=== PATIENT | female | born 1975 | race Caucasian/White ===

== ENCOUNTER 2019-01-21 23:52 | Emergency (ER) | payer BC, OTHER ==
--- NOTE | 2019-01-22 00:03 | EDM.PDOC ---
ED HPI GENERAL MEDICAL PROBLEM - General Chief Complaint: General Stated Complaint: PT SPOKE TO NURSE Time Seen by Provider: 01/22/19 00:00 - History of Present Illness INITIAL COMMENTS - FREE TEXT/NARRATIVE: HISTORY AND PHYSICAL: History of present illness: Patient 43-year-old female with history of hypertension who presents with a concern of cough she is scheduled appointment with her doctor tomorrow because a concern of possible pneumonia is been no fever chills nausea vomiting she has a history of anxiety Review of systems: As per history of present illness and below otherwise all systems reviewed and negative. Past medical history: As per history of present illness and as reviewed below otherwise noncontributory. Surgical history: As per history of present illness and as reviewed below otherwise noncontributory. Social history: No reported history of drug or alcohol abuse. Family history: As per history of present illness and as reviewed below otherwise noncontributory. Physical exam: HEENT: Atraumatic, normocephalic, pupils reactive, negative for conjunctival pallor or scleral icterus, mucous membranes moist, throat clear, neck supple, nontender, trachea midline. Lungs: Clear to auscultation, breath sounds equal bilaterally, chest nontender. Heart: S1S2, regular, negative for clicks, rubs, or JVD. Abdomen: Soft, nondistended, nontender. Negative for masses or hepatosplenomegaly. Negative for costovertebral tenderness. Pelvis: Stable nontender. Genitourinary: Deferred. Rectal: Deferred. Extremities: Atraumatic, negative for cords or calf pain. Neurovascular unremarkable. Neuro: Awake, alert, oriented. Cranial nerves II through XII unremarkable. Cerebellum unremarkable. Motor and sensory unremarkable throughout. Exam nonfocal. Diagnostics: Chest x-ray EKG Therapeutics: None Impression: #1 medical screening exam #2 history of hypertension Definitive disposition and diagnosis as appropriate pending reevaluation and review of above. - Related Data Allergies Allergy/AdvReac Type Severity Reaction Status Date / Time No Known Allergies Allergy Verified 01/21/19 23:56 Home Meds: Home Meds Ascorbic Acid [Vitamin C] 200 mg PO DAILY 01/21/19 [History] Calcium Carb/Magnesium Hydrox [Rolaids Chewable Tablet] 1 tab PO ASDIRECTED [History] Ibuprofen [Advil] 200 mg PO ASDIRECTED PRN 01/21/19 [History] Metoprolol Succinate [Kapspargo Sprinkle] 50 mg PO DAILY 01/21/19 [History] Multivitamin [Multivitamins] 1 tab PO DAILY 01/21/19 [History] [place]-3/DHA/Epa/Fish Oil [[place] 3 500 Softgel] 1,040 mg PO DAILY 01/21/19 [ History] Omeprazole Magnesium [Prilosec Otc] 20 mg PO ASDIRECTED 01/21/19 [History] ED ROS GENERAL - Review of Systems Review Of Systems: ROS reveals no pertinent complaints other than HPI. ED EXAM, GENERAL - Physical Exam Exam: See Below (The dictation) Course - Vital Signs Last Recorded V/S: Last Vital Signs Temp 36.4 C 01/21/19 23:54 Pulse 110 H 01/21/19 23:54 Resp 20 01/21/19 23:54 BP 184/91 H 01/21/19 23:54 Pulse Ox 96 01/21/19 23:54 Departure - Departure Time of Disposition: 00:02 Disposition: Home, Self-Care 01 Condition: Good Clinical Impression: Encounter for medical screening examination, Hypertension - Discharge Information Referrals: Rafael Friend MD [Primary Care Provider] - Additional Instructions: The following information is given to patients seen in the emergency department who are being discharged to home. This information is to outline your options for follow-up care. We provide all patients seen in our emergency department with a follow-up referral. The need for follow-up, as well as the timing and circumstances, are variable depending upon the specifics of your emergency department visit. If you don't have a primary care physician on staff, we will provide you with a referral. We always advise you to contact your personal physician following an emergency department visit to inform them of the circumstance of the visit and for follow-up with them and/or the need for any referrals to a consulting specialist. The emergency department will also refer you to a specialist when appropriate. This referral assures that you have the opportunity for followup care with a specialist. All of these measure are taken in an effort to provide you with optimal care, which includes your followup. Under all circumstances we always encourage you to contact your private physician who remains a resource for coordinating your care. When calling for followup care, please make the office aware that this follow-up is from your recent emergency room visit. If for any reason you are refused follow-up, please contact the [facility] emergency department at and asked to speak to the emergency department charge nurse. Chief schedule appointment in a.m. continue current medications return as needed as discussed
--- NOTE | 2019-01-22 00:36 | CR ---
INDICATION: Tingling and pain. TECHNIQUE: Chest 1 view COMPARISON: None FINDINGS: Cardiovascular and mediastinum: Heart size and vasculature are normal in caliber and appearance. Lungs and pleural spaces: No pleural effusion or pneumothorax. Small airspace opacity at the right middle lobe abutting the minor fissure. Discoid atelectasis left lower lobe. Bones and soft tissues: No significant findings. IMPRESSION: Small airspace opacity in the right middle lobe consistent with atelectasis or pneumonia. Dictated by Suraj Henry MD @ Jan 22 2019 12:33AM Signed by Dr. Suraj Henry @ Jan 22 2019 12:33AM
[2019-01-22] MEDS ORDERED: Levofloxacin 500 MG Tab PO ONE (00:53)
[2019-01-22] MEDS ORDERED: Albuterol/Ipratropium 3.0-0.5 MG/3 ML Neb Soln ONE (01:39)
[2019-01-22] MEDS ORDERED: Albuterol/Ipratropium 3.0-0.5 MG/3 ML Neb Soln NEB ONE (01:41)
== END 2019-01-22 02:01 | disposition home or self-care (01) ==
LOC: MW.ED 23:52
DX: J18.9 Pneumonia, unspecified organism (principal); I10 Essential (primary) hypertension; Z79.899 Other long term (current) drug therapy
CPT/HCPCS: 36415; 71045; 85025; 93005; 94640; 99284; A9270; 99283; J7620-GY

== ENCOUNTER 2019-06-24 06:26 | Day surgery (SDC) | payer BC ==
[~2019-06-24 06:26] MED LIST: Lactated Ringers 1,000 ML IV SCH; Sodium Chloride 0.9% 10 ML SDV IV PRN; Sodium Chloride 0.9% 10 ML Syringe FLUSH PRN; Sodium Chloride 0.9% 2.5 ML Syringe FLUSH PRN; ceFAZolin 2 GM in Premix Bag 1 BAG IV ONE
--- NOTE | 2019-06-24 07:17 | PCM.PREANE ---
Preanesthetic Assessment - Anesthesia/Transfusion/Family Hx Anesthesia History: No Prior Anesthesia Family History of Anesthesia Reaction: No Transfusion History: No Prior Transfusion(s) Intubation History: Unknown - Review of Systems General: No Symptoms Pulmonary: No Symptoms Cardiovascular: No Symptoms Gastrointestinal: No Symptoms, Other (gallbladder EF 9%) Neurological: No Symptoms Other: Reports: None - Physical Assessment Vital Signs: Last Vital Signs Temp 36.2 C 06/24/19 06:45 Pulse 62 06/24/19 06:45 Resp 16 06/24/19 06:45 BP 131/79 06/24/19 06:45 Pulse Ox 97 06/24/19 06:45 Height: 5 ft 5 in Weight: 93.44 kg ASA Class: 2 Mental Status: Alert & Oriented x3 Airway Class: Mallampati = 2 Dentition: Reports: Normal Dentition Thyro-Mental Finger Breadths: 3 Mouth Opening Finger Breadths: 3 ROM/Head Extension: Full Lungs: Clear to Auscultation, Normal Respiratory Effort Cardiovascular: Regular Rate, Regular Rhythm - Lab Values: Laboratory Last Values Urine HCG, Qual NEGATIVE (NEGATIVE) 06/24/19 06:42 - Allergies Allergies/Adverse Reactions: Allergies Allergy/AdvReac Type Severity Reaction Status Date / Time Sulfa (Sulfonamide Allergy Hives Verified 06/21/19 12:02 Antibiotics) - Blood Blood Available: No - Anesthesia Plan Pre-Op Medication Ordered: None - Acknowledgements Anesthesia Type Planned: General Anesthesia Pt an Appropriate Candidate for the Planned Anesthesia: Yes Alternatives and Risks of Anesthesia Discussed w Pt/Guardian: Yes Pt/Guardian Understands and Agrees with Anesthesia Plan: Yes PreAnesthesia Questionnaire HEENT History: Reports: Other (See Below) Other HEENT History: wears glasses Cardiovascular History: Reports: Hypertension Respiratory History: Reports: None Gastrointestinal History: Reports: GERD, Other (See Below) (biliary dyskinesia) Genitourinary History: Reports: None 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 Musculoskeletal History: Reports: Arthritis Neurological History: Reports: None Psychiatric History: Reports: Panic Attack 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 Endocrine/Metabolic History: Reports: Obesity/BMI 30+, Other (See Below) ( prediabetic, A1c 5.8 , glucose levels 100-115 in the morning) Hematologic History: Reports: None Immunologic History: Reports: None Oncologic (Cancer) History: Reports: None Dermatologic History: Reports: None - Past Surgical History Head Surgeries/Procedures: Reports: None - SUBSTANCE USE Smoking Status *Q: Never Smoker Recreational Drug Use History: No - HOME MEDS Home Medications: Home Meds Ascorbic Acid [Vitamin C] 500 mg PO DAILY 01/21/19 [History] Metoprolol Succinate [Kapspargo Sprinkle] 75 mg PO DAILY 01/21/19 [History] Multivitamin [Multivitamins] 1 tab PO DAILY 01/21/19 [History] ALPRAZolam [Alprazolam ER] 1 mg PO ASDIRECTED PRN 06/21/19 [History] Cinnamon Bark [Cinnamon] 500 mg PO DAILY 06/21/19 [History] Fish Oil/[place]-3 Fatty Acids [Fish Oil 1,000 MG] 1,000 mg PO DAILY 06/21/19 [ History] Lansoprazole [Prevacid] 15 mg PO ASDIRECTED 06/21/19 [History] - CURRENT (IN HOUSE) MEDS Current Meds: Current Medications Lactated Ringer's (Ringers, Lactated) 1,000 mls @ 125 mls/hr IV ASDIRECTED MAHESH Sodium Chloride (Saline Flush) 10 ml FLUSH ASDIRECTED PRN PRN Reason: Keep Vein Open Sodium Chloride (Saline Flush) 2.5 ml FLUSH ASDIRECTED PRN PRN Reason: Keep Vein Open Sodium Chloride (Normal Saline) 10 ml IV ASDIRECTED PRN PRN Reason: IV Use Discontinued Medications Cefazolin Sodium/Dextrose 2 gm (/ Premix) 50 mls @ 100 mls/hr IV ONETIME ONE Stop: 06/21/19 12:05
[2019-06-24] MEDS ORDERED: Midazolam 1 MG/ML 2 ML SDV ONE (07:21)
[2019-06-24] MEDS ORDERED: fentaNYL 250 MCG/5 ML SDV ONE (07:22)
[2019-06-24] MEDS ORDERED: Rocuronium 100 MG/10 ML Syringe ONE (07:22)
[2019-06-24] MEDS ORDERED: Propofol 200 MG/20 ML SDV ONE (07:22)
[2019-06-24] MEDS ORDERED: Bupivacaine 0.5% 30 ML SDV ONE (07:29)
[2019-06-24] MEDS ORDERED: Neostigmine Methylsulfate 1 MG/ML 5 ML Syringe ONE (09:11)
[2019-06-24] MEDS ORDERED: Glycopyrrolate 0.2 MG/ML SDV ONE (09:11)
--- NOTE | 2019-06-24 09:57 | PCM.OPNOTE ---
- General Post-Op/Procedure Note Date of Surgery/Procedure: 06/24/19 Operative Procedure(s): Laparoscopic cholecystectomy Findings: Mild hepatomegally. Omental and duodenal adhesions to the gallbladder. Pre Op Diagnosis: Biliary dyskinesia Post-Op Diagnosis: same Anesthesia Technique: General ET Tube Primary Surgeon: Marie Billingsley Fluid Replacement, Intraop: 1,000 Output, Urine Amount: 200 EBL in mLs: 10 Condition: Good
[2019-06-24] MEDS ORDERED: HYDROmorphone 1 MG/ML Syringe IVPUSH ONE (10:11)
[2019-06-24] MEDS ORDERED: fentaNYL 100 MCG/2 ML SDV IVPUSH PRN (10:11)
[2019-06-24] MEDS ORDERED: HYDROmorphone 2 MG/ML Syringe IVPUSH ONE (10:30)
--- NOTE | 2019-06-24 10:32 | OR ---
SURGEON: MARIE DELEON MD DATE OF PROCEDURE: 06/24/2019 PREOPERATIVE DIAGNOSIS: Biliary dyskinesia. POSTOPERATIVE DIAGNOSIS: Biliary dyskinesia. PROCEDURE PERFORMED: Laparoscopic cholecystectomy with lysis of adhesions. PRIMARY SURGEON: Marie Deleon MD. ANESTHESIA: General endotracheal anesthesia. FLUIDS: 1000 mL of crystalloid. ESTIMATED BLOOD LOSS: 10 mL. URINE OUTPUT: 200 mL. FINDINGS: Mildly enlarged liver with fatty infiltration, gallbladder with omental and duodenal adhesions. COMPLICATIONS: None. INDICATIONS: The patient is a 44-year-old female who presents with biliary dyskinesia. I explained the need for a cholecystectomy. I explained the procedure; expected perioperative course; and risks including bleeding, infection, or damage to surrounding structures and the possible need for an open procedure. The patient verbalized understanding and wishes to proceed. PROCEDURE IN DETAIL: The patient was brought into the OR and placed on the OR table in supine position. A time-out was completed verifying the patient's name, age, date of , allergies, and procedure to be performed. General endotracheal anesthesia was induced. The left arm was tucked to the patient's side and a Broussard catheter placed. The abdomen was prepped and draped in usual standard fashion. I anesthetized the supraumbilical fold with 0.5% Marcaine plain. An 11 blade was used to make a 3 cm incision along the supraumbilical midline. Cautery was used to dissect down to the level of subcutaneous fat. I then bluntly dissected down to the fascia. The fascia was elevated with Ambrose's and incised sharply with Doss scissors. The peritoneum was identified under this. It was elevated with hemostats and incised sharply with curved Doss scissors. Entry into the abdomen was palpated digitally. Stay sutures were placed on either side of the fascia using 0 Vicryl sutures. A 12 mm Jefferson trocar was placed in the abdomen and it was insufflated with carbon dioxide. A 5 mm 30- degree scope was inserted, and I inspected the area underneath my initial trocar placement. No damage to surrounding structures was noted. The patient was placed into reverse Trendelenburg position and airplaned slightly to the left. 5 mm trocars were placed in the following locations under direct visualization, one in the epigastric area, one in the right flank, and one 2 fingerbreadths below the right subcostal margin. The dome of the gallbladder was grasped and elevated. I immediately noticed omental adhesions. These were taken down using hook cautery and gentle blunt dissection. As these adhesions were taken down, the gallbladder was lifted cranially. When I got to the infundibulum, I noticed that the duodenum was adhered densely to this. Using gentle blunt dissection, I was able to tease away the adhesions from the gallbladder to the duodenum. I then closely inspected the duodenum after it was freed up. There was no evidence of damage to the duodenum. The infundibulum was grasped, and using hook cautery and blunt dissection, I cleared away all the peritoneal attachments around the cystic duct and artery. I then cleared away one-third of the cystic plate. I identified the node of Calot. Once my critical view was achieved, I doubly clipped and ligated the cystic duct and artery. The remainder of the attachments of the gallbladder to the gallbladder fossa were taken down using hook cautery. Once the gallbladder was freed from this, I placed it an Endo Catch bag and removed it through the supraumbilical port site. The Jefferson trocar was placed back in the abdomen, and I inspected my operative field. It appeared hemostatic with no evidence of bile leakage. The clips appeared to be in good position. The abdomen was irrigated with normal saline until it ran clear. This was suctioned out. The 5 mm trocars were then removed under direct visualization and the abdomen allowed to desufflate. The Jefferson trocar was removed, and I used my 0 Vicryl stay sutures to close the fascia. The subcutaneous fat layer was closed with interrupted 3-0 Vicryl sutures. The skin was closed with a running 4-0 Monocryl stitch. The 5 mm trocar sites were closed with interrupted 4-0 Monocryl sutures. All counts were complete and correct at the end of the case. The patient tolerated the procedure well and was taken to the PACU in stable condition. MARISSA SAVAGE /[id number]
--- NOTE | 2019-06-24 10:36 | PCM.POSTAN ---
POST ANESTHESIA ASSESSMENT - MENTAL STATUS Mental Status: Alert, Oriented - VITAL SIGNS Vital Signs: Last Vital Signs Temp 36.3 C 06/24/19 10:05 Pulse 78 06/24/19 10:30 Resp 18 06/24/19 10:30 BP 115/63 06/24/19 10:30 Pulse Ox 99 06/24/19 10:30 - RESPIRATORY Respiratory Status: Respiratory Rate WNL, Airway Patent, O2 Saturation Stable - CARDIOVASCULAR CV Status: Pulse Rate WNL, Blood Pressure Stable - GASTROINTESTINAL GI Status: No Symptoms - PAIN Pain Score: 0 - POST OP HYDRATION Hydration Status: Adequate & Stable
[2019-06-24] MEDS ORDERED: Ketorolac 30 MG/ML SDV IVPUSH ONE (11:11)
[2019-06-24] MEDS ORDERED: Acetaminophen/oxyCODONE 325-5 MG Tab PO PRN (11:16)
--- NOTE | 2019-06-24 13:31 | PCM48HPAN ---
Post Anesthesia Note - EVALUATION WITHIN 48HRS OF ANESTHETIC Vital Signs in Normal Range: Yes Patient Participated in Evaluation: Yes Respiratory Function Stable: Yes Airway Patent: Yes Cardiovascular Function Stable: Yes Hydration Status Stable: Yes Pain Control Satisfactory: Yes Nausea and Vomiting Control Satisfactory: Yes Mental Status Recovered: Yes Vital Signs: Last Vital Signs Temp 36.2 C 06/24/19 10:40 Pulse 52 L 06/24/19 11:20 Resp 18 06/24/19 11:20 BP 119/75 06/24/19 11:20 Pulse Ox 99 06/24/19 11:20
== END 2019-06-24 13:45 | disposition home or self-care (01) ==
LOC: MW.SDS 06:26
PROVIDERS: ATTEND Surgery
DX: K82.8 Other specified diseases of gallbladder (principal); K81.1 Chronic cholecystitis; K76.0 Fatty (change of) liver, not elsewhere classified; K66.0 Peritoneal adhesions (postprocedural) (postinfection); M19.90 Unspecified osteoarthritis, unspecified site; K21.9 Gastro-esophageal reflux disease without esophagitis; I10 Essential (primary) hypertension; E66.9 Obesity, unspecified; Z88.2 Allergy status to sulfonamides; Z68.35 Body mass index [BMI] 35.0-35.9, adult
CPT/HCPCS: 47562; 81025; A9270; J0330; J1170; J1885; J2250; J2704; J3010; J3490; J7120; 00790; 88304

== ENCOUNTER 2021-02-04 08:02 | Emergency (ER) | payer BC ==
--- NOTE | 2021-02-04 08:08 | EDM.PDOC ---
ED HPI GENERAL MEDICAL PROBLEM - General Chief Complaint: Skin Complaint Stated Complaint: CAT BITE L HAND AND R FOOT Time Seen by Provider: 02/04/21 08:05 - History of Present Illness INITIAL COMMENTS - FREE TEXT/NARRATIVE: Patient is a 45-year-old female this morning she accidentally closed her cats tail in a door leading the cat attacked her. She sustained scratches and bites to the right foot and the left hand. No other injuries. She and her clean the wounds well with hydrogen peroxide and then bandaged them with bacitracin. She presents wondering if she needs an antibiotic. She otherwise feels well. left hand and right foot Pain Score (Numeric/FACES): 2 - Related Data Allergies Allergy/AdvReac Type Severity Reaction Status Date / Time Sulfa (Sulfonamide Allergy Hives Verified 02/04/21 08:18 Antibiotics) Home Meds: Home Meds Ascorbic Acid [Vitamin C] 500 mg PO DAILY 01/21/19 [History] Metoprolol Succinate [Kapspargo Sprinkle] 75 mg PO DAILY 01/21/19 [History] Multivitamin [Multivitamins] 1 tab PO DAILY 01/21/19 [History] ALPRAZolam [Alprazolam ER] 1 mg PO ASDIRECTED PRN 06/21/19 [History] Cinnamon Bark [Cinnamon] 500 mg PO DAILY 06/21/19 [History] Fish Oil/[place]-3 Fatty Acids [Fish Oil 1,000 MG] 1,000 mg PO DAILY 06/21/19 [History] Lansoprazole [Prevacid] 15 mg PO ASDIRECTED 06/21/19 [History] Sertraline [Zoloft] 02/04/21 [History] Past Medical History HEENT History: Reports: Other (See Below) Other HEENT History: wears glasses Cardiovascular History: Reports: Hypertension Respiratory History: Reports: None Gastrointestinal History: Reports: GERD, Other (See Below) (biliary dyskinesia) Genitourinary History: Reports: None 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 Musculoskeletal History: Reports: Arthritis Neurological History: Reports: None Psychiatric History: Reports: Panic Attack 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 Skin: Per HPI Musculoskeletal: No myalgias/arthralgias. Neurologic: No headache. ED EXAM, GENERAL - Physical Exam Exam: See Below Free Text/Narrative:: General Appearance: No acute distress, appears comfortable Skin: Multiple linear abrasions to the right heel consistent with cat scratch and potentially bite no obvious retained foreign body no active bleeding no swelling no erythema no drainage, some scratches and what appears to be a bite to the hypothenar eminence of the left hand. There is no active bleeding no palpable retained foreign bodies all digits are neurovascularly and intact there is no tenderness in the palm or the palmar surfaces of the digits HEENT: Normocephalic/atraumatic, sclera anicteric, mucous membranes moist Neck: Normal range of motion Musculoskeletal: No edema or tenderness Neurologic: Awake, alert, no obvious deficits, moving all extremities Psychiatric: Appropriate, cooperative Course - Vital Signs Last Recorded V/S: Last Vital Signs Temp 97.2 F 02/04/21 08:15 Pulse 68 02/04/21 08:15 Resp 18 02/04/21 08:15 BP 153/80 H 02/04/21 08:15 Pulse Ox 97 02/04/21 08:15 - Orders/Labs/Meds Orders: Active Orders 24 hr Category Date Time Status Foot 2V Rt [CR] Stat Exams 02/04/21 08:19 Ordered Hand 2V Lt [CR] Stat Exams 02/04/21 08:19 Ordered Departure - Departure Time of Disposition: 08:34 Disposition: Home, Self-Care 01 Condition: Good Clinical Impression: Cat bite involving extremity - Discharge Information *PRESCRIPTION DRUG MONITORING PROGRAM REVIEWED*: Not Applicable *COPY OF PRESCRIPTION DRUG MONITORING REPORT IN PATIENT SHANNAN: Not Applicable Instructions: Animal Bite, Adult Forms: ED Department Discharge Additional Instructions: Please take 1 tablet of the Augmentin twice daily for the next 5 days. Because we need to give you the standard premade bottle the prescription contains twice the number of pills that you will actually need. Please only take the medication for the next 5 days. If you have any worsening redness swelling discharge please call your doctor or return to the ER. The following information is given to patients seen in the emergency department who are being discharged to home. This information is to outline your options for follow-up care. We provide all patients seen in our emergency department with a follow-up referral. The need for follow-up, as well as the timing and circumstances, are variable depending upon the specifics of your emergency department visit. If you don't have a primary care physician on staff, we will provide you with a referral. We always advise you to contact your personal physician following an emergency department visit to inform them of the circumstance of the visit and for follow-up with them and/or the need for any referrals to a consulting specialist. The emergency department will also refer you to a specialist when appropriate. This referral assures that you have the opportunity for follow-up care with a specialist. All of these measure are taken in an effort to provide you with optimal care, which includes your follow-up. Under all circumstances we always encourage you to contact your private physician who remains a resource for coordinating your care. When calling for follow-up care, please make the office aware that this follow-up is from your recent emergency room visit. If for any reason you are refused follow-up, please contact the [facility] Emergency Department at and asked to speak to the emergency department charge nurse. Sepsis Event Note (ED) - Focused Exam Vital Signs: Vital Signs Temp Pulse Resp BP Pulse Ox 02/04/21 08:15 97.2 F 68 18 153/80 H 97 - My Orders Last 24 Hours: My Active Orders 02/04/21 08:19 Foot 2V Rt [CR] Stat Hand 2V Lt [CR] Stat - Assessment/Plan Last 24 Hours: My Active Orders 02/04/21 08:19 Foot 2V Rt [CR] Stat Hand 2V Lt [CR] Stat Assessment:: 45-year-old female presenting with cat scratches and bites. Patient requires no repair. She cleaned the wounds well and we will redress them. Patient needs an x-ray of the hand of the foot to exclude retained tooth fragments. Patient will be discharged with 5 days of Augmentin. XRs of hand and foot negative for retained FB per my preliminary interpretations. Pt discharged with f/u instructions and anticipatory guidance. Return precautions discussed and understood.
--- NOTE | 2021-02-04 09:08 | CR ---
INDICATION: Cat bite. Evaluate for retained foreign body. FINDINGS: Two views of the right foot show no evidence of acute fracture or dislocation. Posterior and plantar calcaneal spurs. No radiopaque foreign bodies identified. No other bony or soft tissue abnormalities identified. Dictated by Florentin Sifuentes MD @ 02/04/2021 9:06:[address] Florentin Sifuentes @ Feb 04 2021 9:06AM
--- NOTE | 2021-02-04 09:14 | CR ---
INDICATION: Cat bite. Evaluate for retained foreign body. FINDINGS: Two views of the left hand show no evidence of acute fracture or dislocation. No radiopaque foreign bodies identified. No other bony or soft tissue abnormalities identified. Dictated by Florentin Sifuentes MD @ 02/04/2021 9:12:[address] Florentin Sifuentes @ Feb 04 2021 9:12AM
== END 2021-02-04 08:51 | disposition home or self-care (01) ==
LOC: MW.ED 08:02
DX: S61.452A Open bite of left hand, initial encounter (principal); S91.351A Open bite, right foot, initial encounter; I10 Essential (primary) hypertension; Z88.2 Allergy status to sulfonamides; Z79.899 Other long term (current) drug therapy; W55.01XA Bitten by cat, initial encounter
CPT/HCPCS: 73120-26-LT; 73120-LT; 73620-26-RT; 73620-RT; 99283-25

== ENCOUNTER 2022-02-28 08:02 | Day surgery (SDC) | payer BC ==
[2022-02-27 12:14] LABS: CARBON DIOXIDE,CO2 27.4 mmol/L (21.0-32.0); POTASSIUM,K 4.4 mmol/L (3.5-5.1)
[~2022-02-28 08:02] MED LIST changes: -Sodium Chloride 0.9% 10 ML SDV IV PRN; +Sodium Chloride 0.9% 20 ML SDV IV PRN; -ceFAZolin 2 GM in Premix Bag 1 BAG IV ONE
[2022-02-28] MEDS ORDERED: Scopolamine 1.5 MG Transdermal Patch ONE (08:31)
[2022-02-28] MEDS ORDERED: Metoclopramide 10 MG/2 ML SDV IVPUSH PRN (08:35)
[2022-02-28] MEDS ORDERED: Ondansetron 4 MG/2 ML SDV IVPUSH PRN (08:35)
[2022-02-28] MEDS ORDERED: HYDROmorphone 1 MG/ML Syringe IVPUSH PRN (08:35)
[2022-02-28] MEDS ORDERED: fentaNYL 50 MCG/ML SDV IVPUSH PRN (08:35)
[2022-02-28] MEDS ORDERED: Albuterol 0.083% 2.5 MG/3 ML Neb Soln NEB PRN (08:35)
[2022-02-28] MEDS ORDERED: Naloxone 0.4 MG/ML SDV IVPUSH PRN (08:35)
[2022-02-28] MEDS ORDERED: Morphine 4 MG/ML VIAL IVPUSH PRN (08:35)
[2022-02-28] MEDS ORDERED: Lidocaine 2% Jelly 30 ML Tube ONE (08:39)
[2022-02-28] MEDS ORDERED: propofoL 100 ML ONE (08:39)
[2022-02-28] MEDS ORDERED: Rocuronium Bromide 50 MG/5 ML Syringe ONE (08:40)
[2022-02-28] MEDS ORDERED: Midazolam 1 MG/ML 2 ML SDV ONE (08:47)
[2022-02-28] MEDS ORDERED: fentaNYL 100 MCG/2 ML SDV ONE (09:15)
[2022-02-28] MEDS ORDERED: Ketorolac 30 MG/ML SDV ONE (09:16)
[2022-02-28] MEDS ORDERED: Morphine 4 MG/ML VIAL ONE ×2 (09:17)
[2022-02-28] MEDS ORDERED: Lidocaine 2% 5 ML SDV ONE (09:19)
[2022-02-28] MEDS ORDERED: Dexamethasone 4 MG/ML 5 ML MDV ONE (09:19)
[2022-02-28] MEDS ORDERED: Ondansetron 4 MG/2 ML SDV ONE (09:19)
[2022-02-28] MEDS ORDERED: Fluorescein 5 ML Vial ONE (10:24)
== END 2022-02-28 12:39 | disposition home or self-care (01) ==
LOC: MW.SDS 08:02
PROVIDERS: ATTEND Obstetrics & Gynecology
DX: N39.3 Stress incontinence (female) (male) (principal); N92.3 Ovulation bleeding; I10 Essential (primary) hypertension; F41.0 Panic disorder [episodic paroxysmal anxiety]; F41.1 Generalized anxiety disorder; F40.298 Other specified phobia; R73.03 Prediabetes; E66.9 Obesity, unspecified; F40.8 Other phobic anxiety disorders; Z72.89 Other problems related to lifestyle; Z68.30 Body mass index [BMI] 30.0-30.9, adult; Z88.2 Allergy status to sulfonamides; Z79.899 Other long term (current) drug therapy
CPT/HCPCS: 36415; 57288; 80048; 84703; 85027; 86850; 86900; 86901; C1771; J0131; J1100; J1885; J2250; J2270; J2405; J2704; J3010; J7120

== ENCOUNTER 2023-09-11 10:28 | Day surgery (SDC) | payer BC ==
[~2023-09-11 10:28] MED LIST changes: -Lactated Ringers 1,000 ML IV SCH
[2023-09-11] MEDS: Lactated Ringers 1,000 ML IV SCH (11:05)
== END 2023-09-11 12:43 | disposition home or self-care (01) ==
LOC: MW.SDS 10:28
PROVIDERS: ATTEND Surgery
DX: Z12.11 Encounter for screening for malignant neoplasm of colon (principal); D12.0 Benign neoplasm of cecum; K63.5 Polyp of colon; R73.03 Prediabetes; N39.3 Stress incontinence (female) (male); N92.3 Ovulation bleeding; K82.8 Other specified diseases of gallbladder; R10.32 Left lower quadrant pain; R19.4 Change in bowel habit; E66.9 Obesity, unspecified; Z68.35 Body mass index [BMI] 35.0-35.9, adult; Z79.899 Other long term (current) drug therapy; Z88.2 Allergy status to sulfonamides
CPT/HCPCS: 45380; 81025; J7120; 00811